=== PATIENT | female | born 1965 | race Caucasian/White ===

== ENCOUNTER 2018-12-13 06:36 | Inpatient (IN) | payer MEDICAID ==
[~2018-12-13] VITALS: Ht 162.6 cm; Wt 65.8 kg
[2018-12-13] MEDS ORDERED: SODIUM CHLORIDE 0.9% 1,000 ML IV ONE ×2 (07:05→08:36)
[2018-12-13] MEDS ORDERED: LORAZEPAM 2MG/ML CPJ IV ONE ×2 (07:15→08:45)
[2018-12-13] MEDS ORDERED: DIPHENHYDRAMINE 50MG/ML VIAL IV ONE (07:30)
[2018-12-13 08:16] LABS: BASOPHILS % 0.2 % (0.0-2.0); EOSINOPHILS % 0.1 % (0.0-5.0); HEMATOCRIT. 40.1 % (36.0-48.0); HEMOGLOBIN. 14.4 g/dL (12.0-16.0); LYMPHOCYTES % 9.3 % (20.0-50.0); MEAN CORPUSCULAR HEMOGLOBIN 31.4 pg (28.0-32.0); MEAN CORPUSCULAR VOLUME 87.5 fL (81.0-99.0); MEAN PLATELET VOLUME 8.6 fl (7.4-10.4); MONOCYTES % 2.5 % (2.0-8.0); NEUTROPHILS % 87.9 % (40.0-76.0); PLATELET 236 x1000/uL (130-400); RED BLOOD CELL COUNT 4.58 mill/uL (4.2-5.4); RED CELL DISTRIBUTION WIDTH 12.2 % (11.6-14.6)
[2018-12-13 08:20] LABS: CHLORIDE 80 mEq/L (98-107)
[2018-12-13 08:25] LABS: ETHANOL BLOOD < 10 mg/dL
[2018-12-13 08:30] LABS: HCG SCREEN INDETERMINATE
[2018-12-13 08:33] LABS: VALPROIC ACID < 3.0 ug/mL (50-100)
[2018-12-13 08:37] LABS: CLARITY URINE CLEAR (CLEAR); COLOR URINE YELLOW (YELLOW); KETONES URINE TRACE (NEGATIVE); LEUKOCYTE ESTERASE URINE NEGATIVE (NEGATIVE); NITRITE URINE NEGATIVE (NEGATIVE); OCCULT BLOOD URINE 1+ (NEGATIVE); PH URINE 6.5 (4.5-8.0); PROTEIN URINE 1+ (NEGATIVE); UROBILINOGEN URINE 0.2 E.U./dL (0.2-1.0)
[2018-12-13 08:47] LABS: *AMPHETAMINES SCREEN URINE NEGATIVE (NEGATIVE); *BARBITURATES SCREEN URINE NEGATIVE (NEGATIVE); *BENZODIAZEPINES SCREEN URINE NEGATIVE (NEGATIVE); *COCAINE SCREEN URINE NEGATIVE (NEGATIVE); METHADONE URINE SCREEN NEGATIVE (NEGATIVE)
[2018-12-13 08:48] LABS: CANNABINOID URINE SCREEN PRESUMTIVE POSITIVE (NEGATIVE); OPIATES URINE SCREEN NEGATIVE (NEGATIVE); PHENCYCLIDINE URINE SCREEN NEGATIVE (NEGATIVE)
[2018-12-13 09:06] LABS: CREATINE KINASE 665 IU/L (26-192)
[2018-12-13 09:34] LABS: BG BASE EXCESS -7.3 mmol/L (-2.0-2.0); BG CARBOXYHEMOGLOBIN 0.6 % (0.5-1.5); BG DEOXYHEMOGLOBIN 3.1 % (0.0-5.0); BG FRACTION INSPIRED OXYGEN 21; BG HCO3 ACT 15.9 mmol/L (22.0-26.0); BG METHEMOGLOBIN 0.2 % (0.0-1.5); BG OXYGEN SATURATION 96.9 % (92.0-98.5); BG OXYHEMOGLOBIN 96.1 % (94.0-97.0); BG PCO2 26.3 mmHg (35.0-45.0); BG PH 7.398 (7.350-7.450); BG PO2 92.3 mmHg (75.0-100.0); BG SAMPLE SITE RIGHT BRACHIAL; BG TOTAL HEMOGLOBIN 13.3 g/dL (12.0-18.0); BG VENT MODE ROOM AIR
[2018-12-13 13:00] VITALS: BP 114/66
[2018-12-13] MEDS ORDERED: SODIUM CHLORIDE 0.9% 1,000 ML IV SCH (14:00)
[2018-12-13] MEDS ORDERED: LORAZEPAM 0.5MG TABLET PO PRN (14:00)
[2018-12-13] MEDS ORDERED: ACETAMINOPHEN 325MG TABLET PO PRN (14:00)
[2018-12-13] MEDS ORDERED: ONDANSETRON HCL 4MG/2ML INJ IV PRN (14:00)
[2018-12-13] MEDS ORDERED: MAGNESIUM/ALUMINUM HYDROXIDE/SIMETHICONE 30ML UDC PO PRN (14:00)
[2018-12-13] MEDS ORDERED: CLONIDINE 0.1MG TABLET PO PRN (14:00)
[2018-12-13] MEDS ORDERED: DIPHENHYDRAMINE 50MG/ML VIAL IV PRN (14:00)
[2018-12-13] MEDS: SODIUM CHLORIDE 0.9% INJ 3ML FLUSH IVF SCH ×2 (15:14→20:47)
[2018-12-13 16:00] VITALS: BP 92/52
[2018-12-13 17:01] LABS: PHOSPHORUS 2.5 mg/dL (2.5-4.9)
[2018-12-13] MEDS: SODIUM CHLORIDE 1000MG TABLET PO SCH ×2 (17:37→20:47)
[2018-12-13 20:22] VITALS: BP 90/46
[2018-12-14] VITALS (7 sets, daily range): BP systolic 88–105; BP diastolic 38–55
[2018-12-14] MEDS: SODIUM CHLORIDE 0.9% INJ 3ML FLUSH IVF SCH ×3 (05:08→21:36)
[2018-12-14 06:21] LABS: SODIUM URINE RANDOM 14 mEq/L
[2018-12-14 06:35] LABS: CHLORIDE 109 mEq/L (98-107)
[2018-12-14 06:40] LABS: PHOSPHORUS 2.2 mg/dL (2.5-4.9)
[2018-12-14 08:45] LABS: BASOPHILS % 0.4 % (0.0-2.0); EOSINOPHILS % 0.6 % (0.0-5.0); HEMATOCRIT. 32.8 % (36.0-48.0); HEMOGLOBIN. 11.8 g/dL (12.0-16.0); LYMPHOCYTES % 17.3 % (20.0-50.0); MEAN CORPUSCULAR HEMOGLOBIN 32.3 pg (28.0-32.0); MEAN CORPUSCULAR VOLUME 89.6 fL (81.0-99.0); MEAN PLATELET VOLUME 8.5 fl (7.4-10.4); MONOCYTES % 9.3 % (2.0-8.0); NEUTROPHILS % 72.4 % (40.0-76.0); PLATELET 167 x1000/uL (130-400); RED BLOOD CELL COUNT 3.66 mill/uL (4.2-5.4); RED CELL DISTRIBUTION WIDTH 12.5 % (11.6-14.6)
[2018-12-14] MEDS: DEXTROSE 5% WATER 1,000 ML IV SCH (09:05)
[2018-12-14] MEDS ORDERED: POTASSIUM PHOS,M-BASIC-D-BASIC 15 MMOL in DEXT 5% WATER 245 ML IV NR (10:30)
[2018-12-14] MEDS ORDERED: LORA2TAB2 PO (22:26)
[2018-12-14] MEDS ORDERED: CODE60TA PO (22:26)
[2018-12-14] MEDS ORDERED: LOSA25TA3 PO (22:26)
[2018-12-15] VITALS: BP 100/47
[2018-12-15 04:00] VITALS: BP 103/52
[2018-12-15] MEDS: SODIUM CHLORIDE 0.9% INJ 3ML FLUSH IVF SCH ×2 (06:59→14:00)
[2018-12-15 07:43] LABS: BASOPHILS % 0.7 % (0.0-2.0); EOSINOPHILS % 2.2 % (0.0-5.0); HEMATOCRIT. 33.4 % (36.0-48.0); HEMOGLOBIN. 11.9 g/dL (12.0-16.0); LYMPHOCYTES % 20.4 % (20.0-50.0); MEAN CORPUSCULAR HEMOGLOBIN 32.2 pg (28.0-32.0); MEAN CORPUSCULAR VOLUME 90.7 fL (81.0-99.0); MEAN PLATELET VOLUME 8.2 fl (7.4-10.4); MONOCYTES % 7.6 % (2.0-8.0); NEUTROPHILS % 69.1 % (40.0-76.0); PLATELET 148 x1000/uL (130-400); RED BLOOD CELL COUNT 3.68 mill/uL (4.2-5.4); RED CELL DISTRIBUTION WIDTH 12.4 % (11.6-14.6)
[2018-12-15 08:00] VITALS: BP 97/39
[2018-12-15 08:55] LABS: CHLORIDE 108 mEq/L (98-107)
[2018-12-15 12:00] VITALS: BP 105/55
[2018-12-15] MEDS: DEXTROSE 5% WATER 1,000 ML IV SCH (12:04)
[2018-12-15 13:57] VITALS: BP 105/55
== END 2018-12-15 15:43 | disposition home or self-care (01) | DRG 426 ==
LOC: ER 06:36 → 6WST 10:04 → EDBEDREQ 10:07 → EDBEDREQTM 10:07 → ENRESERV 10:48
PROVIDERS: ADMIT Internal Medicine; ATTEND Internal Medicine
DX: E87.1 Hypo-osmolality and hyponatremia (principal); G93.41 Metabolic encephalopathy; E87.8 Other disorders of electrolyte and fluid balance, not elsewhere classified; G40.909 Epilepsy, unspecified, not intractable, without status epilepticus; F32.9 Major depressive disorder, single episode, unspecified; F41.9 Anxiety disorder, unspecified; F99 Mental disorder, not otherwise specified; Z82.0 Family history of epilepsy and other diseases of the nervous system; Z72.0 Tobacco use; Z91.041 Radiographic dye allergy status; Z79.899 Other long term (current) drug therapy
CPT/HCPCS: 36415; 36600; 80048; 80061; 80165; 80178; 80305; 80307; 80320; 80329; 81003; 82375; 82533; 82550; 82805; 83735; 83930; 83935; 84100; 84295; 84300; 84443; 84702; 84703; 96361; 96374; 96375; 96376; 99285; J1200; J2060; J3490; J7030; J7060; J7070; G0480